=== PATIENT | male | born 1955 | race Caucasian/White ===

== ENCOUNTER 2017-07-27 10:31 | Emergency (ER) | payer MEDICARE ==
[~2017-07-27] VITALS: Ht 172.7 cm; Wt 72.6 kg
[~2017-07-27 10:31] MED LIST: CARV3.122 PO; LISI2.5T PO
[2017-07-27] MEDS ORDERED: IV NORMAL SALINE 1000ML BAG 1,000 ML IV SCH ×2 (11:00)
[2017-07-27] MEDS: HYDROmorphone 2 MG/ML VIAL IV/SQ PRN ×3 (11:07→13:18)
[2017-07-27 11:21] LABS: BASO % 1 % (0-3); EOS % 1 % (0-3); HEMATOCRIT 41.3 % (39.0-53.0); HEMOGLOBIN 13.6 g/dL (13.0-17.5); LYMPH # 1.3 x10^3/uL (1.0-4.8); LYMPH % 26 % (24-48); MEAN CORPUSCULAR HEMOGLOBIN 29 pg (25-35); MEAN CORPUSCULAR HGB CONC 33 g/dL (31-37); MEAN CORPUSCULAR VOLUME 87 fL (79-100); MONO % 7 % (0-9); NEUT % 65 % (31-73); PLATELET COUNT 203 x10^3/uL (140-400); RED BLOOD COUNT 4.75 x10^6/uL (4.30-5.70); RED CELL DISTRIBUTION WIDTH 14.3 % (11.5-14.5); WHITE BLOOD COUNT 4.8 x10^3/uL (4.0-11.0)
[2017-07-27 11:31] LABS: CALCIUM 9.1 mg/dL (8.5-10.1); CREATININE 1.3 mg/dL (0.7-1.3); GFR 56.1; POTASSIUM 3.3 mmol/L (3.5-5.1)
[2017-07-27 11:40] LABS: ALBUMIN 3.7 g/dL (3.4-5.0); ALBUMIN/GLOBULIN RATIO 1.1 (1.0-1.7); TOTAL BILIRUBIN 0.4 mg/dL (0.2-1.0); TOTAL PROTEIN 7.1 g/dL (6.4-8.2)
[2017-07-27 11:45] LABS: BILIRUBIN,URINE NEGATIVE (NEG); GLUCOSE,URINE NEGATIVE (NEG); NITRITE,URINE NEGATIVE (NEG); PH,URINE 7.5; PROTEIN,URINE 30 mg/dL (NEG-TRACE); UROBILINOGEN,URINE 0.2 mg/dL (0.2 mg/dL)
--- NOTE | 2017-07-27 11:46 | PHYS DOC ---
Past Medical History Past Medical History: No Pertinent History Additional Past Medical Histor: DENIES Past Surgical History: Tonsillectomy, Other Additional Past Surgical Histo: BRAIN SX Alcohol Use: Occasionally Drug Use: Marijuana, Methadone Social History Narrative: TOOK METH LAST NIGHT Adult General Chief Complaint Chief Complaint: ABDOMINAL PAIN HPI HPI Patient is a 61 year old presents with abdominal pain. 61-year-old male presents with left-sided abdominal pain. It began approximately a week ago. Last night he was drinking alcohol and the pain became worse. It is left-sided. It is sharp. He is not aware of any alleviating or exacerbating symptoms. He has not had any fevers. He also has noted a infection to his left wrist been going on for a couple days he is not really sure. The pain is apparently severe because he is screaming in pain. Denies any trauma. Review of Systems Review of Systems Constitutional: Denies fever or chills Eyes: Denies change in visual acuity, redness, or eye pain HENT: Denies nasal congestion or sore throat Respiratory: Denies cough or shortness of breath Cardiovascular: No additional information not addressed in HPI GI: History of present illness : Denies dysuria or hematuria Musculoskeletal: Denies back pain or joint pain Integument: Redness to his left wrist. Neurologic: Denies headache, focal weakness or sensory changes Endocrine: Denies polyuria or polydipsia All other systems were reviewed and found to be within normal limits, except as documented in this note. Current Medications Current Medications Current Medications Medications (Trade) Dose Ordered Sig/Blossom Start Time Stop Time Status Last Admin Dose Admin Ceftriaxone Sodium 1 gm/ Dextrose 50 ml @ 100 mls/hr Q24H 07/27/17 14:15 UNV Ceftriaxone Sodium (Rocephin) 1 gm Q24H 07/28/17 15:00 Hydromorphone HCl (Dilaudid) 1 mg PRN Q15MIN PRN 07/27/17 11:00 07/28/17 10:59 07/27/17 13:18 1 MG Info (Do NOT chart on this entry -- for MONITORING) 1 each PRN DAILY PRN 07/27/17 12:45 07/29/17 12:44 Iohexol (Omnipaque 300 Mg/ml) 60 ml 1X ONCE 07/27/17 12:45 07/27/17 12:46 DC 07/27/17 12:49 60 ML Ketorolac Tromethamine (Toradol) 30 mg 1X ONCE 07/27/17 14:15 07/27/17 14:16 DC 07/27/17 14:28 30 MG Sodium Chloride 1,000 ml @ 100 mls/hr Q10H 07/27/17 11:00 07/27/17 20:59 07/27/17 11:09 100 MLS/HR Allergies Allergies Allergies Coded Allergies Type Severity Reaction Last Updated Verified No Known Drug Allergies 08/16/16 No Physical Exam Physical Exam Constitutional: Well developed, appears to be in quite a bit of pain. HENT: Normocephalic, atraumatic, bilateral external ears normal, oropharynx moist, no oral exudates, nose normal. Eyes: PERRLA, EOMI, conjunctiva normal, no discharge. Neck: Normal range of motion, no tenderness, supple, no stridor. Cardiovascular:Heart rate regular rhythm, no murmur Lungs & Thorax: Bilateral breath sounds clear to auscultation Abdomen: Mild left lower quadrant tenderness. No rebound. Skin: Warm, dry, no erythema, no rash. Back: No tenderness, no CVA tenderness. Extremities: No tenderness, no cyanosis, no clubbing, ROM intact, no edema. Neurologic: Alert and oriented X 3, normal motor function, normal sensory function, no focal deficits noted. Psychologic: He is somewhat anxious. Current Patient Data Vital Signs Vital Signs Date Time Temp Pulse Resp B/P (MAP) Pulse Ox O2 Delivery O2 Flow Rate FiO2 07/27/17 14:12 69 130/91 (104) 99 Room Air 07/27/17 12:36 14 07/27/17 10:42 97.8 97.8 Lab Values Laboratory Tests Test 07/27/17 11:15 07/27/17 11:30 White Blood Count 4.8 x10^3/uL (4.0-11.0) Red Blood Count 4.75 x10^6/uL (4.30-5.70) Hemoglobin 13.6 g/dL (13.0-17.5) Hematocrit 41.3 % (39.0-53.0) Mean Corpuscular Volume 87 fL (79-100) Mean Corpuscular Hemoglobin 29 pg (25-35) Mean Corpuscular Hemoglobin Concent 33 g/dL (31-37) Red Cell Distribution Width 14.3 % (11.5-14.5) Platelet Count 203 x10^3/uL (140-400) Neutrophils (%) (Auto) 65 % (31-73) Lymphocytes (%) (Auto) 26 % (24-48) Monocytes (%) (Auto) 7 % (0-9) Eosinophils (%) (Auto) 1 % (0-3) Basophils (%) (Auto) 1 % (0-3) Neutrophils # (Auto) 3.1 x10^3uL (1.8-7.7) Lymphocytes # (Auto) 1.3 x10^3/uL (1.0-4.8) Monocytes # (Auto) 0.3 x10^3/uL (0.0-1.1) Eosinophils # (Auto) 0.1 x10^3/uL (0.0-0.7) Basophils # (Auto) 0.0 x10^3/uL (0.0-0.2) Sodium Level 141 mmol/L (136-145) Potassium Level 3.3 mmol/L (3.5-5.1) L Chloride Level 102 mmol/L (98-107) Carbon Dioxide Level 27 mmol/L (21-32) Anion Gap 12 (6-14) Blood Urea Nitrogen 22 mg/dL (8-26) Creatinine 1.3 mg/dL (0.7-1.3) Estimated GFR (Cockcroft-Gault) 56.1 BUN/Creatinine Ratio 17 (6-20) Glucose Level 117 mg/dL (70-99) H Calcium Level 9.1 mg/dL (8.5-10.1) Total Bilirubin 0.4 mg/dL (0.2-1.0) Aspartate Amino Transferase (AST) 25 U/L (15-37) Alanine Aminotransferase (ALT) 31 U/L (16-63) Alkaline Phosphatase 102 U/L (46-116) Total Protein 7.1 g/dL (6.4-8.2) Albumin 3.7 g/dL (3.4-5.0) Albumin/Globulin Ratio 1.1 (1.0-1.7) Lipase 71 U/L (73-393) L Urine Collection Type U cath Urine Color Yellow Urine Clarity Clear Urine pH 7.5 Urine Specific [place] 1.020 Urine Protein 30 mg/dL (NEG-TRACE) Urine Glucose (UA) Negative mg/dL (NEG) Urine Ketones (Stick) 15 mg/dL (NEG) Urine Blood Moderate (NEG) Urine Nitrite Negative (NEG) Urine Bilirubin Negative (NEG) Urine Urobilinogen Dipstick 0.2 mg/dL (0.2 mg/dL) Urine Leukocyte Esterase Negative (NEG) Urine RBC 20-40 /HPF (0-2) Urine WBC 1-4 /HPF (0-4) Urine Squamous Epithelial Cells Few /LPF Urine Renal Epithelial Cells Few /LPF Urine Amorphous Sediment Present /HPF Urine Bacteria Few /HPF (0-FEW) Urine Hyaline Casts Few /HPF Urine Mucus Marked /LPF Urine Opiates Screen Pos (NEG) Urine Methadone Screen Neg (NEG) Urine Barbiturates Neg (NEG) Urine Phencyclidine Screen Neg (NEG) Urine Amphetamine/Methamphetamine Pos (NEG) Urine Benzodiazepines Screen Neg (NEG) Urine Cocaine Screen Neg (NEG) Urine Cannabinoids Screen Neg (NEG) Urine Ethyl Alcohol Neg (NEG) Laboratory Tests 07/27/17 11:15 Laboratory Tests 07/27/17 11:15 EKG EKG EKG is a normal sinus rhythm QRS is 154 ms. His no acute findings of ischemia. Turbid by me at 11:15 AM[] Radiology/Procedures Radiology/Procedures [] Course & Med Decision Making Course & Med Decision Making 1146: Patient with left lower quadrant abdominal pain. Labs initiated and we'll obtain CT scan of the belly. Possible kidney stone possible diverticulitis. We' ll treat pain. Ct scan as above. D/W Dr. Head at [facility] and he accepts patient to pre-op for stent. Patient is in agreement with transfer. Dx: ureterolithiasis and kidney mass Trnsferred in stable condition.. Dragon Disclaimer Dragon Disclaimer This electronic medical record was generated, in whole or in part, using a voice recognition dictation system. Departure Departure Impression: Primary Impression: Ureterolithiasis Additional Impression: Kidney mass Disposition: 05 TRANSFER OTHER Condition: STABLE Referrals: NON,STAFF (PCP) Problem Qualifiers GANGA CRUZ MD Jul 27, 2017 11:46
[2017-07-27 11:50] LABS: BARBITURATES NEG (NEG); BENZODIAZEPINES NEG (NEG); CANNABINOIDS NEG (NEG); COCAINE NEG (NEG); METHADONE NEG (NEG); OPIATES POS (NEG); PHENCYCLIDINE NEG (NEG)
[2017-07-27 11:56] LABS: SQUAMOUS EPITHELIAL CELL,UR FEW /LPF
[2017-07-27 11:57] LABS: BACTERIA,URINE FEW /HPF (0-FEW); RBC,URINE 20-40 /HPF (0-2)
[2017-07-27] MEDS ORDERED: IOHEXOL 300 MG/ML 100ML VIAL. IV ONE (12:45)
[2017-07-27] MEDS ORDERED: CONTRAST GIVEN MC PRN (12:45)
--- NOTE | 2017-07-27 13:20 | EKG ---
[facility] [address] [place] [address] Test Date: 2017-07-27 Test Time: 11:13:08 Pat Name: TAMIKO HARTLEY Department: Room: Gender: M [employer]gr[employer] In[employer]: : 1955 Requested By: GANGA CRUZ Order Number: [id number] Reading MD: Measurements Intervals [place] Rate: 86 P: 27 RI: 126 QRS: -5 QRSD: 154 T: 156 QT: 434 QTc: 523 Interpretive Statements SINUS RHYTHM LEFT ATRIAL ABNORMALITY CONSIDER WPW, TYPE B LEFTWARD AXIS ST ABNORMALITY, POSSIBLE ANTEROLATERAL SUBENDOCARDIAL INJURY ABNORMAL ECG RI6.01 No previous ECG available for comparison
--- NOTE | 2017-07-27 13:51 | RAD ---
CT abdomen with contrast 07/27/2017 Clinical indication: Abdominal pain. Comparison: None. Technique: Multiple CT images of the abdomen were obtained following the intravenous menstruation of 60 mL Omnipaque 300. PQRS Compliance Statement: One or more of the following individualized dose reduction techniques were utilized for this examination: 1. Automated exposure control 2. Adjustment of the mA and/or kV according to patient size 3. Use of iterative reconstruction technique Findings: Heart is mildly enlarged. There is basilar interlobular septal thickening with trace bilateral pleural effusions. Liver is normal morphology. There is focal fatty infiltration adjacent to the falciform. There is periportal edema noted. Gallbladder is nondilated. There is mild extrahepatic bile or ductal dilatation with the common bile duct measuring 0.8 cm. No definite radiopaque cholelithiasis. Spleen is normal in size with a few calcified splenic granulomas. Adrenal glands, pancreas and right kidney are unremarkable apart from a tiny 4 mm cyst at the [place] pole of the right kidney. There is a 4 mm obstructive calculus in the proximal left ureter series 2/image 54 with mild upstream hydronephrosis, periureteral and perinephric stranding and a delayed nephrogram. There is an ill-defined inferior pole hypodensity extending to the cortex measuring 1.1 cm series 2/image 49. There is moderate atheromatous disease of the abdominal aorta. There is focal left lateral outpouching of the abdominal aorta below the level of the renal arteries series 2/image 48. There is a moderate hiatal hernia. There is a focal calcific density at the gastrohepatic ligament measuring 1.9 cm, may be dystrophic. Visualized small and large bowel loops are normal in caliber. No abdominal free fluid. No abdominal lymphadenopathy. Impression: 1. 4 mm obstructive calculus in the proximal left ureter with mild resultant upstream hydroureteronephrosis and delayed nephrogram. 2. Left proximal periureteral and perinephric stranding, may be reactive or represent a sending infection. 3. 1.1 cm left renal hypodensity which is ill-defined and concerning for pyelonephritis or intrarenal abscess. Malignancy cannot be excluded. Follow-up CT or MRI is recommended after a course of therapy to ensure resolution. 4. Trace bilateral pleural effusions and interlobular septal thickening which may represent pulmonary edema. 5. Periportal edema likely from fluid resuscitation. 6. Small infrarenal abdominal aorta outpouching may represent a saccular aneurysm. Follow-up is recommended.
[2017-07-27] MEDS ORDERED: KETOROLAC 30 MG/ML INJ. IV ONE (14:15)
[2017-07-27 15:03] VITALS: BP 129/83
[2017-07-28] MEDS ORDERED: cefTRIAXone IV Push 1 GM VIAL. IVP SCH (15:00)
== END 2017-07-27 15:57 | disposition short-term general hospital (02) ==
LOC: ER 10:31
DX: N20.1 Calculus of ureter (principal); N13.30 Unspecified hydronephrosis; N28.89 Other specified disorders of kidney and ureter; F12.10 Cannabis abuse, uncomplicated; F11.10 Opioid abuse, uncomplicated
CPT/HCPCS: 36415; 74177; 80053; 80307; 81001; 83690; 85025; 93005; 96361; 96365; 96375; 96376; 99285; J0690; J1170; J1885; J7030; Q9967; G0479

== ENCOUNTER 2019-11-02 20:01 | Emergency (ER) | payer MEDICARE ==
[~2019-11-02] VITALS: Ht 177.8 cm; Wt 75.0 kg
[~2019-11-02 20:01] MED LIST changes: +CARV3.1210 PO; -CARV3.122 PO
[2019-11-02 20:11] VITALS: BP 117/72
--- NOTE | 2019-11-02 20:24 | PHYS DOC ---
Past Medical History Past Medical History: No Pertinent History Additional Past Medical Histor: DENIES Past Surgical History: Tonsillectomy, Other Additional Past Surgical Histo: BRAIN SX Smoking Status: Current Every Day Smoker Alcohol Use: Occasionally Drug Use: Marijuana, Methadone Adult General Chief Complaint Chief Complaint: UPPER EXTREMITY INJURY HPI HPI Patient is a 64 year old male who presents with chief complaint of [facility] unable to remove his PICC line. Patient is requested the PICC line be removed due to he does not want antibiotics anymore. Patient is been getting antibiotics due to infections to his feet. Patient requested clot be removed and nursing [facility] the [facility] was unable to do so. Denies any other complaints. Complete ROS were reviewed and found to be within normal limits, except as documented in the HPI Allergies Allergies Allergies Coded Allergies Type Severity Reaction Last Updated Verified lisinopril Allergy Severe TONGUE SWELLS 11/02/19 Yes Physical Exam Physical Exam Constitutional: Well developed, well nourished, no acute distress, non-toxic appearance. [] HENT: Normocephalic, atraumatic Neurologic: Alert and oriented X 3, normal motor function, normal sensory function, no focal deficits noted. [] Skin: No erythema or swelling noticed around the PICC line. Psychologic: Affect normal, judgement normal, mood normal. [] Current Patient Data Vital Signs Vital Signs Date Time Temp Pulse Resp B/P (MAP) Pulse Ox O2 Delivery O2 Flow Rate FiO2 11/02/19 20:11 98.9 81 18 117/72 (87) 96 Room Air 98.9 EKG EKG [] Radiology/Procedures Radiology/Procedures [] Course & Med Decision Making Course & Med Decision Making Pertinent Labs and Imaging studies reviewed. (See chart for details) We will have nursing remove the PICC line. Nursing was able to remove pic line with no issue. Dragon Disclaimer Dragon Disclaimer This electronic medical record was generated, in whole or in part, using a voice recognition dictation system. Departure Departure Impression: Primary Impression: PIC line (peripherally inserted central catheter) removal Disposition: 01 HOME, SELF-CARE Condition: STABLE Referrals: NON,STAFF (PCP) Patient Instructions: PICC, Removal and Care After Additional Instructions: Thank you for visiting [facility]. We appreciate you trusting us with your care. If any additional problems come up don't hesitate to return to visit us. Please follow up with your primary care provider so they can plan additional care if needed and know about the problem that you had. If symptoms worsen come back to the Emergency Department. Any concerning symptoms that start such as chest pain, shortness of air, weakness or numbness on one side of the body, running high fevers or any other concerning symptoms return to the ER. APRIL PADRON APRN Nov 02, 2019 20:24
== END 2019-11-02 20:58 | disposition home or self-care (01) ==
LOC: ER 20:01
DX: Z45.2 Encounter for adjustment and management of vascular access device (principal); F17.200 Nicotine dependence, unspecified, uncomplicated; Z88.8 Allergy status to other drugs, medicaments and biological substances
CPT/HCPCS: 99284; 99285